=== PATIENT | male | born 2005 | race Two or more races ===

== ENCOUNTER 2025-02-20 13:29 | Emergency (ER) | payer SELFPAY | END 2025-02-20 14:31 | disposition home or self-care (01) | LOC: MW.ED 13:29 | DX: G44.209 Tension-type headache, unspecified, not intractable (principal); R04.0 Epistaxis; Z88.8 Allergy status to other drugs, medicaments and biological substances; Z91.018 Allergy to other foods; Z91.013 Allergy to seafood; Z79.899 Other long term (current) drug therapy | CPT/HCPCS: 99283 ==